=== PATIENT | male | born 1980 | race Caucasian/White ===

== ENCOUNTER 2020-05-12 12:21 | Emergency (ER) | payer OTHER ==
[~2020-05-12] VITALS: Ht 193 cm; Wt 97.5 kg
[2020-05-12] MEDS ORDERED: CLEOCIN HCL150 MG PO (13:22)
[2020-05-12] MEDS ORDERED: NORCO5 PO (13:22)
[2020-05-12 13:29] VITALS: BP 132/70
== END 2020-05-12 13:29 | disposition home or self-care (01) ==
LOC: M.ERS 12:21
DX: K08.89 Other specified disorders of teeth and supporting structures (principal); L53.9 Erythematous condition, unspecified; Z88.6 Allergy status to analgesic agent; Z91.018 Allergy to other foods

== ENCOUNTER 2021-05-17 14:21 | Emergency (ER) | payer OTHER ==
[~2021-05-17] VITALS: Ht 193 cm; Wt 105.7 kg
[~2021-05-17 14:21] MED LIST: CLEOCIN HCL150 MG PO; NORCO5 PO
[2021-05-17 14:59] VITALS: BP 125/77
== END 2021-05-17 14:59 | disposition home or self-care (01) ==
LOC: M.ERS 14:21
DX: B02.9 Zoster without complications (principal); Z88.6 Allergy status to analgesic agent; Z91.018 Allergy to other foods